=== PATIENT | male | born 1995 | race Caucasian/White ===

== ENCOUNTER 2021-01-12 10:01 | Emergency (ER) | payer BC, SELFPAY ==
[~2021-01-12] VITALS: Ht 167.6 cm; Wt 56.7 kg
--- NOTE | 2021-01-12 10:05 | NUR ---
Pt triaged and placed in tent
--- NOTE | 2021-01-12 10:05 | NUR ---
Pt walked in to ER with c/o cough, congestion and SOB x3 days. Reports wanting to get a Covid test today at the [facility] but when he bent over to put his shoes on, he got dizzy and thought he should come in to the ER instead. O2 sat 100% on RA, other v/s stable, no acute distress noted.
[2021-01-12 10:07] VITALS: BP_SYST 131
--- NOTE | 2021-01-12 10:15 | NUR ---
NIRU Galvez at bedside examining patient.
--- NOTE | 2021-01-12 10:18 | NUR ---
Covid19 swab performed outside tent and sent to lab.
--- NOTE | 2021-01-12 12:35 | NUR ---
Patient given written and verbal discharge instructions and verbalizes understanding. ER MD discussed with patient the results and treatment provided. Patient in stable condition. ID arm band removed. No prescriptions given. Patient educated on pain management and to follow up with PMD. Pain Scale 0. Opportunity for questions provided and answered. Medication side effect fact sheet provided.
[2021-01-12 12:36] VITALS: BP_SYST 131
== END 2021-01-12 12:36 | disposition home or self-care (01) ==
LOC: SED 10:01
DX: J06.9 Acute upper respiratory infection, unspecified (principal); F41.1 Generalized anxiety disorder; J45.909 Unspecified asthma, uncomplicated; Z20.822 Contact with and (suspected) exposure to COVID-19
CPT/HCPCS: 36415; 71046-TC; 93005; 99285